=== PATIENT | male | born 2000 | race African-American/Black ===

== ENCOUNTER 2022-05-19 15:37 | Emergency (ER) | payer MEDICAID, SELFPAY ==
[2022-05-19 16:53] VITALS: BP 114/74; PULSE 65; RESP 18; TEMP 36.7; O2SAT 99; BMI 25.8
--- NOTE | 2022-05-19 18:26 | ED_ITS ---
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 He immediately had fogginess and blurry vision. This lasted for about 20 minutes. Continues to have a headache in the back of the head that has radiated to the sides of and top of the head. He no longer has blurry vision. There are no neurologic deficits although he felt that his left upper extremity was a bit weak after this happen. He is not confused. No altered mental status. No vomiting. This occurred approximately 5 hours ago. History of previous concussion approximately 3 years ago. Review of Systems Status of ROS: Reports: 10 or more systems reviewed and unremarkable except as noted in History and below Exam Narrative: Exam Narrative: GCS is 15. Well-nourished well-developed patient in no acute distress. Alert and oriented. Answers questions appropriately. Mood and affect are appropriate. Thoughts are goal oriented and rational. No tangential or magical thinking noted. Patient speaks in full sentences without needing to catch his breath. HEENT: Normocephalic atraumatic. Pupils are equally round reactive to light. Extraocular muscles are intact. Conjunctivae are moist without any icterus noted. Moist mucous membranes. Posterior pharynx is normal. Neck is soft without any lymphadenopathy or thyromegaly. No masses are appreciated. Cardiovascular: Heart is regular rate and rhythm S1 and S2 are present without any murmurs. Lungs: Clear to auscultation bilaterally no wheezes rhonchi or rales are appreciated. Patient takes deep breaths without any discomfort. Abdomen: Soft and nontender nondistended with normal bowel sounds. No guarding or rebound. No masses or organomegaly appreciated. Extremities: Bilateral lower extremities are without edema. Normal DP and PT pulses. Skin: Well perfused without any obvious rashes. Back: Normal appearance. He has no tenderness to palpation over the cervical, thoracic or lumbar spine. He has full range of motion at the neck with flexion, extension, side way bending and rotation. Strength is 5/5 of the upper and lower extremities. Reflexes are 2+ and symmetric at the knees. Romberg sign is negative. Cranial nerves 3-12 are normal. [id number] is normal. There is no nystagmus either horizontally or vertically. Gait is normal. Const: Vital Signs, click to edit/add: Vital Signs - 24 hr 05/19/22 16:53 Temperature 98.1 F Pulse Rate [Pulse Oximeter] 65 Respiratory Rate 18 Blood Pressure [Ri ght Upper Arm] 114/74 Pulse Oximetry 99 Oxygen Delivery Me thod Room Air Course Vital Signs Vital signs: Initial Vital Signs Temperature 98.1 F 05/19/22 16:53 Temperature Source Temporal Artery Scan 05/19/22 16:53 Pulse Rate 65 05/19/22 16:53 Pulse Rhythm 05/19/22 16:53 Respiratory Rate 18 05/19/22 16:53 Blood Pressure 114/74 05/19/22 16:53 Blood Pressure Mean 87 05/19/22 16:53 Blood Pressure Position Sitting 05/19/22 16:53 Pulse Oximetry 99 05/19/22 16:53 Oxygen Delivery Method 05/19/22 16:53 Vital Signs Temperature 98.1 F 05/19/22 16:53 Pulse Rate 65 05/19/22 16:53 Respiratory Rate 18 05/19/22 16:53 Blood Pressure 114/74 05/19/22 16:53 Pulse Oximetry 99 05/19/22 16:53 Oxygen Delivery Method 05/19/22 16:53 Temperature 98.1 F 05/19/22 16:53 Pulse Rate 65 05/19/22 16:53 Respiratory Rate 18 05/19/22 16:53 Blood Pressure 114/74 05/19/22 16:53 Pulse Oximetry 99 05/19/22 16:53 Oxygen Delivery Method 05/19/22 16:53 Medical Decision Making MDM Narrative Medical decision making narrative: 21-year-old male with a mild concussion. I do not think that there is any cervical spine or intracranial damage at this point. We discussed concussion recommendations and when to return to sports. Patient was agreeable had no other questions. Discharge Plan Discharge Clinical Impression: Mild concussion, Closed head injury Patient Disposition: Home, Self-Care Condition: Stable Additional Instructions: Rest for 24 hours. This includes no screens, nothing that stimulates the brain. Then return to activity as follows- Each step should take 24 hours before advancing to the next step: 1. Return to school or work if work does not require physical activity. 2. Return to light physical activity. 3. Return to rigorous activity, non contact. 4. Return to full contact practice. 5. Return to all play. If symptoms return, rest for 24 hours and resume at last step that did not produce any symptoms. Symptoms include headache, blurry vision, nausea. If you are not improving at 5 days, follow-up with your primary care provider. Okay to take Tylenol or ibuprofen as needed for headache, however you must not have a headache without any medications in order to progress to the following steps. Stand Alone Forms: [employer] Info Instructions
[2022-05-19 19:01] VITALS: BP 114/74; PULSE 65; RESP 18; TEMP 36.7
== END 2022-05-19 19:05 | disposition home or self-care (01) ==
LOC: ED 19:04
PROVIDERS: Emergency Provider Family Medicine
DX: S06.0X0A Concussion without loss of consciousness, initial encounter (principal); W21.81XA Striking against or struck by football helmet, initial encounter; Y93.61 Activity, american tackle football
CPT/HCPCS: 99282; 99283